=== PATIENT | male | born 1980 | race Caucasian/White ===

== ENCOUNTER 2020-08-26 03:05 | Emergency (ER) | payer OTHER, SELFPAY ==
--- NOTE | 2020-08-26 03:07 | ECG_ITS ---
[facility] Test Date: 2020-08-26 Pat Name: Cristobal Dietrich Department: Room: Gender: Male [employer] Turner: : 1980 Requested By: Ba Elizalde Order Number: [id number] Arzola MD: Sanjay De La Fuente M.D. Measurements Intervals [place] Rate: 69 P: 39 OH: 163 QRS: 10 QRSD: 105 T: 21 QT: 389 QTc: 417 Interpretive Statements SINUS RHYTHM No previous ECG available for comparison Electronically Signed On 08-26-2020 20:24:49 CDT by Sanjay De La Fuente M.D. [id number]
--- NOTE | 2020-08-26 03:07 | XRR_ITS ---
PROCEDURE INFORMATION: Exam: XR Chest, 1 View Exam date and time: 08/26/2020 4:05 AM Age: 39 years old Clinical indication: Dyspnea; Additional info: Cp TECHNIQUE: Imaging protocol: XR of the chest Views: 1 view. COMPARISON: No relevant prior studies available. FINDINGS: Lungs: Unremarkable. No consolidation. Pleural space: Unremarkable. No pleural effusion. No pneumothorax. Heart/Mediastinum: Unremarkable. No cardiomegaly. Bones/joints: Unremarkable. XR/XR chest 1V portable [id number] IMPRESSION: No acute findings.
[2020-08-26 03:12] VITALS: BP 148/94; PULSE 76; RESP 18; TEMP 36.5; O2SAT 100; BMI 36.8
[2020-08-26] MEDS: lidocaine 2% viscous 15 ML, aluminum-mag hydrox-simethicon 30 ML, sucralfate oral liq 1 GM PO (03:55)
[2020-08-26 03:58] LABS: Basophils % 0.5 %; Eosinophils # 0.1 10^3/uL (0.0-0.8); Eosinophils % 1.2 %; Hematocrit 48.7 % (42.0-52.0); Hemoglobin 15.7 g/dL (11.7-16.6); Lymphocytes # 1.2 10^3/uL (0.8-4.8); Lymphocytes % 16.7 %; Mean Corpuscular HGB Conc 32.2 g/dL (30.0-36.0); Mean Corpuscular Hemoglobin 26.8 pg (28.0-34.0); Mean Corpuscular Volume 83.2 fL (80-94); Mean Platelet Volume 11.3 fL (7.4-10.4); Monocytes # 0.5 10^3/uL (0.2-0.9); Monocytes % 6.7 %; Neutrophils # 5.48 10^3/uL (1.8-7.7); Neutrophils % 74.6 %; Nucleated Red Blood Cells % 0 %; Platelet Count 285 10^3/cmm (130-400); Red Blood Count 5.85 10^6/uL (4.1-5.3); Red Cell Distribution Width 13.4 % (12.1-15.1); White Blood Count 7.4 10^3/uL (4.0-10.0)
[2020-08-26 04:05] VITALS: BP 125/83; PULSE 66; RESP 18; O2SAT 96
--- NOTE | 2020-08-26 04:05 | ED_ITS ---
HPI - Chest Pain General: Chief Complaint: Chest Pain Stated Complaint: Epigastric Pain Time Seen by Provider: 08/26/20 03:22 History of Present Illness: HPI narrative: 39-year-old male with no history of heart disease. He presents with chest discomfort starting around 10 PM. He states he was nauseated. Not overly short of breath. He tried Tums which did not help. He tried different positions which did not seem to help either. The pain is significantly improved currently. He still having some mild heaviness in his chest. MD complaint: chest pain Onset (ago): hour(s) Timing of current episode: constant Prior episodes: Yes Onset: during rest Pain location: substernal Pain radiation: none Quality: tightness and aching Relieving factors: nothing Exacerbating factors: nothing Associated symptoms: Reports diaphoresis and nausea; Deny abdominal pain, dyspnea, fever(s), palpitations or vomiting Treatment prior to arrival: other Review of Systems Const: Reports: diaphoresis; Denies: fever(s) Eyes: Denies: change in vision ENMT: Denies: swelling of lips/tongue or sinus pain Card: Reports: chest pain; Denies: palpitations, irregular heart rhythm, edema, swelling of feet/ankles, dyspnea on exertion or orthopnea Resp: Denies: dyspnea GI: Reports: nausea; Denies: abdominal pain or vomiting : Denies: dysuria or hematuria Musc: Reports: back pain; Denies: neck pain Skin/Breast: Denies: rash or erythema Neuro: Denies: headache(s), dizziness or vertigo Psych: Denies: anxiety Physical Exam Const: GENERAL APPEARANCE: well developed ORIENTATION/CONSCIOUSNESS: Yes o riented to person, Yes oriented to place and Yes oriented to time HENMT: COMMON NORMALS: normocephalic, external ears normal and Normal external nose present HEAD & SCALP: normocephalic FACE & SINUS: normal facial exam NOSE: Normal external nose present and No nasal discharge present EXTERNAL EAR: Yes external ears normal Eye: COMMON NORMALS: Equal, round and reactive pupils present, EOMs intact bilaterally and conjunctivae normal EYELID: eyelids normal CONJUNCTIVA: Yes conjunctivae normal PUPIL: Yes Equal, round and reactive pupils present Neck/C-Spine: GENERAL: No tracheal deviation Chest: COMMONS NORMALS: normal inspection of the chest CHEST: No tenderness Resp: COMMON NORMALS: clear to auscultation bilaterally EFFORT & INSPECTION: No tachypneic, No respiratory distress, No retractions, No uses accessory muscles and No tracheal deviation AUSCULTATION: clear to auscultation bilaterally, no rhonchi, no wheezes and lung sounds not diminished Cardio: COMMON NORMALS: regular rate and regular rhythm RATE: regular rate RHYTHM: regular rhythm HEART SOUNDS: no murmurs PERIPHERAL PULSES: radial pulses present GI: INSPECTION: No abdominal distension AUSCULTATION: No Hyperactive bowel sounds present and No Hypoactive bowel sounds present PALPATION: No Guarding due to palpation present (GI) and No Rigid due to palpation PERCUSSION: no dullness to percussion and no tympanic to percussion Neuro: SENSORIUM/ORIENTATION: Yes oriented to person, Yes oriented to place and Yes oriented to time Psych: COMMON NORMALS: mental status grossly normal Skin: COMMON NORMALS: no rashes or lesions noted GENERAL SKIN EXAM: no rashes or lesions noted Course Vital Signs: Vital signs: Vital Signs Temperature 97.7 F 08/26/20 03:12 Pulse Rate 66 08/26/20 05:00 Respiratory Rate 16 08/26/20 05:00 Blood Pressure 125/77 08/26/20 05:00 Pulse Oximetry 97 08/26/20 05:00 MDM - Chest Pain MDM Narrative: Medical decision making narrative: Tightness remains in his chest at this point. He is improved after GI cocktail. His EKG shows a sinus rhythm with a normal axis, and a rate of 70. There are no acute ST changes. His first troponin is normal. His hemoglobin is 15.7. Electrolytes are normal. Chest x-ray shows no acute disease. With improvement in his pain, the patient would like to go home. He was offered to stay for the second troponin, and knows the risks of going home without the second troponin including not detecting a non-STEMI, and potential harm and even . He agrees to this. We suggested that since he gained some improvement with GI cocktail, that he may start an [id number] PPI such as Prevacid or Prilosec. He will return for any return of his chest pain. Lab Data: Labs: Lab Results 08/26/20 08/26/20 08/26/20 Range/Units 03:35 03:35 03:35 WBC 7.4 (4.0-10.0) 10^3/ uL RBC 5.85 H (4.1-5.3) 10^6/u L Hgb 15.7 (11.7-16.6) g/dL Hct 48.7 (42.0-52.0) % MCV 83.2 (80-94) fL MCH 26.8 L (28.0-34.0) pg MCHC 32.2 (30.0-36.0) g/dL RDW 13.4 (12.1-15.1) % Plt Count 285 (130-400) 10^3/c mm MPV 11.3 H (7.4-10.4) fL Neut % (Auto) 74.6 % Lymph % (Auto) 16.7 % [place] % (Auto) 6.7 % Eos % (Auto) 1.2 % Baso % (Auto) 0.5 % Neut # (Auto) 5.48 (1.8-7.7) 10^3/u L Lymph # (Auto) 1.2 (0.8-4.8) 10^3/u L [place] # (Auto) 0.5 (0.2-0.9) 10^3/u L Eos # (Auto) 0.1 (0.0-0.8) 10^3/u L Baso # (Auto) 0.0 (0.0-0.1) 10^3/u L Nucleated RBC % (a uto) 0 % Nucleated RBCs # 0.0 /100WBC Sodium 137 (136-145) mmol/L Potassium 3.7 (3.5-5.1) mmol/L Chloride 103 (98-107) mmol/L Carbon Dioxide 23 (22-29) mmol/L Anion Gap 14.7 (5-19) BUN 17 (6-20) mg/dL Creatinine 0.9 (0.7-1.2) mg/dL GFR Calculation 95.0 (90-130) mL/min Glucose 122 H (65-115) mg/dL Calculated Osmolal ity 287 (285-295) mOsm/k g Calcium 9.7 (8.5-10.5) mg/dL Total Bilirubin 0.3 (0.15-1.2) mg/dL AST 26 (0-40) U/L ALT 57 H (0-41) U/L Alkaline Phosphata se 93 (40-130) IU/L Creatine Kinase 48 (39-308) U/L Troponin T Baselin e 6 (0-15) ng/L NT-Pro-B Natriuret Pep 31 (0-125) pg/mL Total Protein 7.1 (6.6-8.7) g/dL Albumin 4.5 (3.5-5.2) g/dL Globulin 2.6 (1.3-4.6) g/dL Lipase 32 (13-60) U/L Urine Color (Yellow) Urine Appearance (CLEAR) Urine pH (5-7) Ur Specific Gravit y (1.005-1.030) Urine Protein (Negative) Urine Glucose (UA) (Normal) Urine Ketones (Negative) Urine Blood (Negative) Urine Nitrate (Negative) Urine Bilirubin (Negative) Urine Urobilinogen (Negative) mg/dL Ur Leukocyte Isi ase (Negative) 08/26/20 Range/Units 04:15 WBC (4.0-10.0) 10^3/ uL RBC (4.1-5.3) 10^6/u L Hgb (11.7-16.6) g/dL Hct (42.0-52.0) % MCV (80-94) fL MCH (28.0-34.0) pg MCHC (30.0-36.0) g/dL RDW (12.1-15.1) % Plt Count (130-400) 10^3/c mm MPV (7.4-10.4) fL Neut % (Auto) % Lymph % (Auto) % [place] % (Auto) % Eos % (Auto) % Baso % (Auto) % Neut # (Auto) (1.8-7.7) 10^3/u L Lymph # (Auto) (0.8-4.8) 10^3/u L [place] # (Auto) (0.2-0.9) 10^3/u L Eos # (Auto) (0.0-0.8) 10^3/u L Baso # (Auto) (0.0-0.1) 10^3/u L Nucleated RBC % (a uto) % Nucleated RBCs # /100WBC Sodium (136-145) mmol/L Potassium (3.5-5.1) mmol/L Chloride (98-107) mmol/L Carbon Dioxide (22-29) mmol/L Anion Gap (5-19) BUN (6-20) mg/dL Creatinine (0.7-1.2) mg/dL GFR Calculation (90-130) mL/min Glucose (65-115) mg/dL Calculated Osmolal ity (285-295) mOsm/k g Calcium (8.5-10.5) mg/dL Total Bilirubin (0.15-1.2) mg/dL AST (0-40) U/L ALT (0-41) U/L Alkaline Phosphata se (40-130) IU/L Creatine Kinase (39-308) U/L Troponin T Baselin e (0-15) ng/L NT-Pro-B Natriuret Pep (0-125) pg/mL Total Protein (6.6-8.7) g/dL Albumin (3.5-5.2) g/dL Globulin (1.3-4.6) g/dL Lipase (13-60) U/L Urine Color Yellow (Yellow) Urine Appearance Clear (CLEAR) Urine pH 5 (5-7) Ur Specific Gravit y 1.020 (1.005-1.030) Urine Protein Neg (Negative) Urine Glucose (UA) Norm (Normal) Urine Ketones Negative (Negative) Urine Blood Neg (Negative) Urine Nitrate Negative (Negative) Urine Bilirubin Neg (Negative) Urine Urobilinogen Norm (Negative) mg/dL Ur Leukocyte Isi ase Negative (Negative) Discharge Plan Discharge Patient Disposition: Home Clinical Impression: Chest pain Qualifiers: Chest pain type: unspecified Qualified Code(s): R07.9 - Chest pain, unspecified Condition: Stable Prescriptions: New Prevacid 30 mg capsule,delayed release(DR/EC) 30 mg PO DAILY Qty: 30 RF: 0 Discharge Orders: Discharge Order (Routine); Ordered 08/26/20 Ordered By: Ba Jacobson Discharge Diet: Advance as tolerated Discharge Activity: Increase activity as tolerated Patient Instructions: Chest Pain (ED), Esophageal Spasm (ED) Activity Restrictions/Additional Instructions: Return for return of or worsening chest pain, shortness of breath, cough, fever, other concerning symptoms. 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
[2020-08-26 04:16] LABS: Troponin(5th) Baseline 6 ng/L (0-15)
[2020-08-26 04:23] LABS: Add Urine Microscopic? NO
[2020-08-26 04:25] LABS: Bilirubin Urine Neg (Negative); Blood Urine Neg (Negative); Glucose Urine UA Norm (Normal); Ketones Urine Negative (Negative); Leukocyte Esterase Urine Negative (Negative); Nitrate Urine Negative (Negative); Protein Urine Neg (Negative); Urine Appearance Clear (CLEAR); Urine Color Yellow (Yellow); Urobilinogen Urine Norm (Negative); pH Urine 5 (5-7)
[2020-08-26 04:31] LABS: Alanine Aminotransferase 57 U/L (0-41); Albumin Level 4.5 g/dL (3.5-5.2); Alkaline Phosphatase 93 IU/L (40-130); Anion Gap 14.7 (5-19); Aspartate Amino Transferase 26 U/L (0-40); Blood Urea Nitrogen 17 mg/dL (6-20); Calcium 9.7 mg/dL (8.5-10.5); Carbon Dioxide 23 mmol/L (22-29); Chloride 103 mmol/L (98-107); Creatine Phosphokinase 48 U/L (39-308); Creatinine Clr Calc Pharmacy 152.4508; Globulin 2.6 g/dL (1.3-4.6); Glucose 122 mg/dL (65-115); Lipase 32 U/L (13-60); NT Pro B Type Natriuretic Pept 31 pg/mL (0-125); Osmolality Calculated 287 mOsm/kg (285-295); Potassium 3.7 mmol/L (3.5-5.1); Sodium 137 mmol/L (136-145); Total Bilirubin 0.3 mg/dL (0.15-1.2); Total Protein 7.1 g/dL (6.6-8.7)
[2020-08-26 05:00] VITALS: BP 125/77; PULSE 66; RESP 16; O2SAT 97
[2020-08-26 05:48] VITALS: BP 142/78; PULSE 66; RESP 17; O2SAT 97
--- NOTE | 2020-08-26 05:53 | PC.NURSE ---
i agree with this assessment
== END 2020-08-26 05:53 | disposition home or self-care (01) ==
PROVIDERS: Emergency Provider Emergency Medicine
DX: R07.9 Chest pain, unspecified (principal)
CPT/HCPCS: 12345; 71045; 80053; 81003; 82550; 83690; 83880; 84484; 85025; 93005; 96374; 99283; 99284

== ENCOUNTER 2020-09-03 08:37 | Observation (INO) | payer OTHER, SELFPAY ==
[2020-09-03] VITALS (21 sets, daily range): BP systolic 103–165; BP diastolic 62–100; PULSE 68–118; RESP 14–20; TEMP 36.4–37.2; O2SAT 92–98; BMI 37.0
--- NOTE | 2020-09-03 08:56 | US_ITS ---
WS: [id number] RIGHT UPPER QUADRANT ULTRASOUND HISTORY: abd pain COMPARISON: None available. Technically limited evaluation of the RIGHT upper quadrant due to body habitus. Liver: 19.0 cm in length. Moderate enlarged liver with coarsened echotexture and hepatic steatosis. Gallbladder: Well distended gallbladder. There is a stone at the neck of the gallbladder. Mild diffus e gallbladder wall thickening measuring up to 4.8 mm. No pericholecystic fluid. CBD: 0.4 cm Pancreas: Not well visualized. Right kidney: 11.6 cm in length. Normal size and echogenicity. No hydronephrosis or mass. Aorta and IVC: Not visualized. No ascites. US/US gall bladder [id number] IMPRESSION: 1. Cholelithiasis with wall thickening. Findings suspicious for changes of ear ly acute cholecystitis. 2. No common bile duct dilatation. 3. Moderate hepatic steatosis and hepatomegaly.
--- NOTE | 2020-09-03 09:24 | ED_ITS ---
HPI - Abdominal Pain General: Chief Complaint: Abdominal Pain Stated Complaint: Lower Abdominal Pain Time Seen by Provider: 09/03/20 08:45 History of Present Illness: HPI narrative: 39-year-old male comes in complaining of right upper quadrant abdominal pain. He was seen here on 08/26/2020 with a complaint of chest pain he got a work-up including a delta troponin on and that was unremarkable. His LFTs at that time showed only a slight bump in one of his transaminases and there is no report of abdominal pain. Several days later he went to [facility] he had more right upper quadrant abdominal pain had an ultrasound was told he had cholecystitis and cho lelithiasis he was started on some oral antibiotics pain medications and sent home. Today he is complaining of worsening pain he was supposed to see Dr. Marie was unable to get an appointment in the office and was directed here. He has been very nauseous but no vomiting he denies any hematochezia melena hematemesis or coffee-ground emesis. MD elicited complaint: abdominal pain Onset (ago): day(s) Pain Consistency: intermittent Location: RUQ Severity: severe Quality: cramping and stabbing Radiation: R flank and back Migration to: RUQ Exacerbating factors: eating Relieving factors: rest Associated Symptoms: Reports anorexia and bloating; Denies belching, change in bowel habits, change in stool character, chills, coffee ground emesis, constipation, GI cramping, diarrhea, dyspepsia, dysuria, excessive flatus, fever(s), heartburn, hematochezia, hematuria, hematemesis, fecal incontinence, loose stools, melena, nausea, poor appetite, syncope and vomiting Review of Systems Const: Denies: fever(s) or chills ENMT: Denies: throat pain, ear or mastoid pain, nasal discharge or nasal co ngestion Card: Denies: syncope Resp: Denies: dyspnea, productive cough or non-productive cough GI: Reports: bloating; Denies: nausea, vomiting, hematemesis, coffee ground emesis, heartburn, diarrhea, constipation, GI cramping, belching, excessive flatus, fecal incontinence, change in bowel habits, change in stool character, hematochezia or melena : Denies: dysuria or hematuria Skin/Breast: Denies: rash or pruritus PFSH ED PFSH: Medical History (Updated 09/03/20 @ 11:53 by Navi Mendez DO) No significant past medical history Surgical History (Updated 09/03/20 @ 11:46 by Randell Kaplan MD) No significant past surgical history Social History Smoking and tobacco status: never smoked Physical Exam Const: COMMON NORMALS: no acute distress GENERAL APPEARANCE: cooperative and comfortable ORIENTATION/CONSCIOUSNESS: Yes awake, Yes oriented to person, Yes oriented to place and Yes oriented to time HENMT: COMMON NORMALS: normocephalic, atraumatic and hearing grossly normal bilaterally HEAD & SCALP: normocephalic and atraumatic Eye: COMMON NORMALS: Equal, round and reactive pupils present, EOMs intact bilaterally, conjunctivae normal and no scleral icterus CONJUNCTIVA: Yes conjunctivae normal PUPIL: Yes Equal, round and reactive pupils present Neck/C-Spine: COMMON NORMALS: full ROM, no lymphadenopathy, supple and no JVD Lymph: LYMPHATIC: no lymphadenopathy noted and no lymphedema noted Resp: COMMON NORMALS: normal respiratory effort, No retractions, No use of accessory muscles and clear to auscultation bilaterally AUSCULTATION: clear to auscultation bilaterally Cardio: COMMON NORMALS: no JVD, regular rate, regular rhythm and No murmurs present (Cardio) RATE: regular rate RHYTHM: regular rhythm GI: PALPATION: Yes Tenderness to palpation present (GI) Details: RUQ (Positive Silva sign) and No Guarding due to palpation present (GI) Extremity: COMMON NORMALS: normal to inspection, capillary refill normal, no clubbing, cyanosis or edema, no calf tenderness and no pedal edema Neuro: SENSORIUM/ORIENTATION: Yes oriented to person, Yes oriented to place and Yes oriented to time Skin: COMMON NORMALS: no rashes or lesions noted GENERAL SKIN EXAM: no rashes or lesions noted Course 2 Vital Signs: Vital signs: Vital Signs Temperature 97.7 F 09/03/20 08:38 Pulse Rate 118 H 09/03/20 08:38 Respiratory Rate 18 09/03/20 08:38 Blood Pressure 165/100 09/03/20 08:38 Pulse Oximetry 96 09/03/20 08:38 MDM - Abdominal Pain MDM Narrative: Medical decision making narrative: for evaluation.Discussed with Dr. Kaplan he is seeing the patient in the emergency room and will take him to surgery and admit. Lab Data: Labs: Lab Results 09/03/20 09/03/20 09/03/20 Range/Units 09:45 10:10 10:10 WBC 14.4 H (4.0-10.0) 10^3/ uL RBC 5.74 H (4.1-5.3) 10^6/u L Hgb 15.2 (11.7-16.6) g/dL Hct 47.7 (42.0-52.0) % MCV 83.1 (80-94) fL MCH 26.5 L (28.0-34.0) pg MCHC 31.9 (30.0-36.0) g/dL RDW 13.6 (12.1-15.1) % Plt Count 291 (130-400) 10^3/c mm MPV 10.6 H (7.4-10.4) fL Neut % (Auto) 80.9 % Lymph % (Auto) 7.6 % [place] % (Auto) 10.3 % Eos % (Auto) 0.6 % Baso % (Auto) 0.3 % Neut # (Auto) 11.69 H (1.8-7.7) 10^3/u L Lymph # (Auto) 1.1 (0.8-4.8) 10^3/u L [place] # (Auto) 1.5 H (0.2-0.9) 10^3/u L Eos # (Auto) 0.1 (0.0-0.8) 10^3/u L Baso # (Auto) 0.0 (0.0-0.1) 10^3/u L Nucleated RBC % (a uto) 0 % Nucleated RBCs # 0.0 /100WBC Sodium 137 (136-145) mmol/L Potassium 4.1 (3.5-5.1) mmol/L Chloride 101 (98-107) mmol/L Carbon Dioxide 24 (22-29) mmol/L Anion Gap 16.1 (5-19) BUN 5 L (6-20) mg/dL Creatinine 0.8 (0.7-1.2) mg/dL GFR Calculation 108.8 (90-130) mL/min Glucose 156 H (65-115) mg/dL Calculated Osmolal ity 284 L (285-295) mOsm/k g Calcium 9.4 (8.5-10.5) mg/dL Total Bilirubin 3.6 H (0.15-1.2) mg/dL AST 68 H (0-40) U/L ALT 126 H (0-41) U/L Alkaline Phosphata se 128 (40-130) IU/L Total Protein 7.4 (6.6-8.7) g/dL Albumin 4.1 (3.5-5.2) g/dL Globulin 3.3 (1.3-4.6) g/dL Lipase 6 L (13-60) U/L Urine Color Dark yellow (Yellow) Urine Appearance Clear (CLEAR) Urine pH 6.5 (5-7) Ur Specific Gravit y 1.005 (1.005-1.030) Urine Protein Neg (Negative) Urine Glucose (UA) Norm (Normal) Urine Ketones Negative (Negative) Urine Blood Neg (Negative) Urine Nitrate Negative (Negative) Urine Bilirubin 1+ H (Negative) Urine Urobilinogen Norm (Negative) mg/dL Ur Leukocyte Isi ase Negative (Negative) Discharge Plan Discharge Patient Disposition: Admitted As Inpatient Clinical Impression: Acute cholecystitis, Cholelithiasis Condition: Stable Prescriptions: No Action lansoprazole [Prevacid] 30 mg capsule,delayed release(DR/EC) 30 mg PO DAILY Qty: 30 RF: 0 hydrocodone-acetaminophen 5-325 mg tablet 1 tab PO 5XD PRN (Reason: Pain) RF: 0 ondansetron 4 mg tablet,disintegrating 4 mg PO Q6H PRN (Reason: Nausea) RF: 0 amoxicillin-pot clavulanate 875-125 mg tablet 1 tab PO BID RF: 0 Coding Level of Care Code 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
[2020-09-03 10:15] LABS: Basophils % 0.3 %; Eosinophils # 0.1 10^3/uL (0.0-0.8); Eosinophils % 0.6 %; Hematocrit 47.7 % (42.0-52.0); Hemoglobin 15.2 g/dL (11.7-16.6); Lymphocytes # 1.1 10^3/uL (0.8-4.8); Lymphocytes % 7.6 %; Mean Corpuscular HGB Conc 31.9 g/dL (30.0-36.0); Mean Corpuscular Hemoglobin 26.5 pg (28.0-34.0); Mean Corpuscular Volume 83.1 fL (80-94); Mean Platelet Volume 10.6 fL (7.4-10.4); Monocytes # 1.5 10^3/uL (0.2-0.9); Monocytes % 10.3 %; Neutrophils # 11.69 10^3/uL (1.8-7.7); Neutrophils % 80.9 %; Nucleated Red Blood Cells % 0 %; Platelet Count 291 10^3/cmm (130-400); Red Blood Count 5.74 10^6/uL (4.1-5.3); Red Cell Distribution Width 13.6 % (12.1-15.1); White Blood Count 14.4 10^3/uL (4.0-10.0)
[2020-09-03 10:31] LABS: Add Urine Microscopic? NO
[2020-09-03 10:43] LABS: Alanine Aminotransferase 126 U/L (0-41); Albumin Level 4.1 g/dL (3.5-5.2); Alkaline Phosphatase 128 IU/L (40-130); Anion Gap 16.1 (5-19); Aspartate Amino Transferase 68 U/L (0-40); Blood Urea Nitrogen 5 mg/dL (6-20); Calcium 9.4 mg/dL (8.5-10.5); Carbon Dioxide 24 mmol/L (22-29); Chloride 101 mmol/L (98-107); Globulin 3.3 g/dL (1.3-4.6); Glomerular Filtration Rate 108.8 mL/min (90-130); Glucose 156 mg/dL (65-115); Lipase 6 U/L (13-60); Osmolality Calculated 284 mOsm/kg (285-295); Potassium 4.1 mmol/L (3.5-5.1); Sodium 137 mmol/L (136-145); Total Bilirubin 3.6 mg/dL (0.15-1.2); Total Protein 7.4 g/dL (6.6-8.7)
[2020-09-03 10:56] LABS: Bilirubin Urine 1+ (Negative); Blood Urine Neg (Negative); Glucose Urine UA Norm (Normal); Ketones Urine Negative (Negative); Leukocyte Esterase Urine Negative (Negative); Nitrate Urine Negative (Negative); Protein Urine Neg (Negative); Specific Gravity, Urine 1.005 (1.005-1.030); Urine Appearance Clear (CLEAR); Urine Color Dark Yellow (Yellow); Urobilinogen Urine Norm (Negative); pH Urine 6.5 (5-7)
[2020-09-03] MEDS: piperacillin-tazobactam 3.375 GM in sodium chloride 0.9% (plus) 50 ML IV ×2 (11:14→16:51)
--- NOTE | 2020-09-03 11:45 | PM.HP ---
Providers/Chief Complaint Admitting Physician: General Surgery Randell Kaplan MD Chief Complaint: Lower Abdominal Pain History of Present Illness Cristobal Dietrich is a 39 year old male who says he started feeling poorly a couple of weeks ago. He came into the emergency department after a week of indigestion and I believe it was thought that he may be experiencing a gallbladder problem, but was sent home. He was in [place] last Thursday and after eating pulled pork he had another severe episode of right upper quadrant abdominal pain. This was unassociated with nausea, vomiting, fevers or chills, changes in bowel habits (although the patient says that he has been slow to have bowel movements over the past week), jaundice, acholic stools, etc. He was seen in an urgent care setting and was sent to the local emergency room where he was diagnosed with acute cholecystitis. The surgeon there wanted to put him on antibiotics and cool his gallbladder down before doing surgery. The patient asked about the option of getting on antibiotics orally and coming back to [place] for surgery and that plan was agreed upon. He was discharged on oral narcotic pain medication, antiemetics, and antibiotics. The patient mentions that he may have had 2 or 3 episodes of this over the past several years but nothing on a regular basis until the past couple of weeks. Review of Systems General: Reports: 10 or more systems reviewed and unremarkable except in HPI and below Const: Denies: fever(s) Resp: Denies: dyspnea or productive cough GI: Reports: abdominal pain and change in bowel habits (Slow/constipated); Denies: nausea Medications/Allergies Home Medications Medication Instructions Recorded Confirmed Last Taken Type lansoprazole [Prevacid] 30 mg PO DAILY #30 cap 08/26/20 09/03/20 09/03/20 Rx amoxicillin-pot clavulanate 1 tab PO BID 09/03/20 09/03/20 09/03/20 History hydrocodone-acetaminophen 1 tab PO 5XD PRN 09/03/20 09/03/20 09/03/20 History ondansetron 4 mg PO Q6H PRN 09/03/20 09/03/20 Unknown History Allergies Allergy/AdvReac Type Severity Reaction Status Date / Time azithromycin Allergy Chest pain Verified 09/03/20 11:53 PFSH Acute PFSH: Medical History No significant past medical history Surgical History (Updated 09/03/20 @ 11:46 by Randell Kaplan MD) No significant past surgical history Social History (Updated 09/03/20 @ 11:52 by Randell Kaplan MD) Smoking and tobacco status: never smoked Vitals/I&O/Wt Last Vital Signs Temp 97.7 F 09/03/20 08:38 Pulse 118 H 09/03/20 08:38 Resp 18 09/03/20 08:38 BP 165/100 09/03/20 08:38 Pulse Ox 96 09/03/20 08:38 Weight last 48 hrs Weight 273 lb Physical Exam Narrative: EXAM NARRATIVE: The patient was encountered in the emergency department. He does not appear to be in any acute distress. The pupils are equal. No carotid bruits are heard. The lungs are clear anteriorly. The heart is regular. The abdomen is moderately obese with hypoactive bowel sounds. The patient has some guarding in the right upper quadrant with a positive Silva's sign. No obvious masses are palpated. The extremities reveal no edema. Neurologically the patient appears to be grossly intact. Data : 09/03/20 10:10 09/03/20 10:10 Other Labs: Laboratory Tests 09/03/20 10:10 Total Bilirubin 3.6 H AST 68 H ALT 126 H Alkaline Phosphatase 128 Lipase 6 L US: Radiologist's impression: Gallbladder ultrasound 09/03/2020 IMPRESSION: 1. Cholelithiasis with wall thickening. Findings suspicious for changes of early acute cholecystitis. 2. No common bile duct dilatation. 3. Moderate hepatic steatosis and hepatomegaly. A&P Assessment and plan (1) Acute cholecystitis due to biliary calculus: It sounds like the patient has been developing acute calculus cholecystitis over the last couple of weeks, but became severely symptomatic several days ago. His gallbladder ultrasound shows the gallbladder wall thickening up to almost 5 mm in one area. I made him aware that the only concern that I have on his labs is his bilirubin being 3.6. His ultrasound does not show any dilatation of the bile duct, however, making me suspicious of Mirizzi's syndrome; I think it is reasonable to proceed with a cholecystectomy without performing an MRCP. Surgery was discussed with him in detail. I made him aware that we no longer generally recommend cooling off the gallbladder prior to doing surgery for acute cholecystitis. I have recommended we proceed with a laparoscopic or possibly open cholecystectomy today. Surgical risks of bleeding, infection, chances of an open procedure, internal organ injury, etc. were all discussed. The patient seems to understand and is agreeable to proceeding. The patient says he last had a banana to eat around 3:30 AM this morning. I will make arrangements for a laparoscopic or possibly open cholecystectomy with possible intraoperative cholangiography today. Status: Acute Attestations Medical Necessity Statement*: Based on my medical assessment, presenting symptoms and consideration of the scope of surgical therapy, I expect this patient will require treatment in the hospital for a period of time spanning less than 2 midnights, and is therefore being placed in observation status. 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
--- NOTE | 2020-09-03 12:28 | P.ANESASSM_ITS ---
Pre-Anesthetic Assessment Pre-Anesthetic Assessment: Height/Weight: Height 1.83 m Weight 123.831 kg Temp Pulse Resp BP Pulse Ox 98.3 F 94 18 118/70 96 09/03/20 12:15 09/03/20 12:15 09/03/20 12:15 09/03/20 12:15 09/03/20 12:15 Preop Diagnosis: Cholecystitis Proposed Procedure: Operation Date: 09/03/20 12:20 Proposed Procedures p Laparoscopic Cholecystectomy(Not Applicable) - Randell Kaplan MD Familial anesthetic complications: No hx of anesthesia Was Beta Yaima taken within 24 hours: N/A Last intake: Intake Last Liquid Date 09/03/20 Last Liquid Time 08:00 Last Solid Date 09/03/20 Last Solid Time 03:30 Social: Social History: No alcohol and No tobacco Exam: Pre-Anes Outpt Exam: alert, oriented x 3, clear to auscultation bilaterally and regular rate & rhythm Airway: Cervical ROM: WNL MP: 2 Dentition: Chipped GI: GI: GERD Anesthetic Plan: ASA status: 2 Anesthesia: General Risk of > 500 ml blood loss (7ml/kg in children): No PFSH Anesthesia PFSH: Medical History No significant past medical history Surgical History (Updated 09/03/20 @ 11:46 by Randell Kaplan MD) No significant past surgical history Social History (Updated 09/03/20 @ 11:52 by Randell Kaplan MD) Smoking and tobacco status: never smoked Data Anesthesia CBC & Chem 7: 09/03/20 10:10 09/03/20 10:10 Other Labs: Laboratory Results - last 48 hr 09/03/20 09/03/20 09/03/20 09:45 10:10 10:10 WBC 14.4 H RBC 5.74 H Hgb 15.2 Hct 47.7 MCV 83.1 MCH 26.5 L MCHC 31.9 RDW 13.6 Plt Count 291 MPV 10.6 H Neut % (Auto) 80.9 Lymph % (Auto) 7.6 [place] % (Auto) 10.3 Eos % (Auto) 0.6 Baso % (Auto) 0.3 Neut # (Auto) 11.69 H Lymph # (Auto) 1.1 [place] # (Auto) 1.5 H Eos # (Auto) 0.1 Baso # (Auto) 0.0 Nucleated RBC % (auto) 0 Nucleated RBCs # 0.0 Sodium 137 Potassium 4.1 Chloride 101 Carbon Dioxide 24 Anion Gap 16.1 BUN 5 L Creatinine 0.8 GFR Calculation 108.8 Glucose 156 H Calculated Osmolality 284 L Calcium 9.4 Total Bilirubin 3.6 H AST 68 H ALT 126 H Alkaline Phosphatase 128 Total Protein 7.4 Albumin 4.1 Globulin 3.3 Lipase 6 L Urine Color Dark yellow Urine Appearance Clear Urine pH 6.5 Ur Specific [place] 1.005 Urine Protein Neg Urine Glucose (UA) Norm Urine Ketones Negative Urine Blood Neg Urine Nitrate Negative Urine Bilirubin 1+ H Urine Urobilinogen Norm Ur Leukocyte Esterase Negative Cardiac Studies: No Data to Display
[2020-09-03] MEDS: sodium chloride 0.9% 1,000 ML 30 ML IV (12:44)
[2020-09-03] MEDS: metroNIDAZOLE IV 500 MG/100 ML PREMIX 100 MG IV (12:56)
--- NOTE | 2020-09-03 13:50 | P.OP_ITS ---
Operative Report Date of procedure: September 03, 2020 Pre-op Diagnosis: Acute calculus cholecystitis. Post-op diagnosis: same Procedure Done: Appendectomy cholecystectomy. Specimens removed/disposition: Gallbladder. Surgeon: Randell Kaplan Anesthesia: General Estimated blood loss (mL): 30 Complications: None. Condition: stable Disposition: PACU Procedure: The patient was brought to the Operating Room and was placed in a supine position on the Operating Room table. General endotracheal anesthesia was induced. The abdomen was prepped and draped in a sterile fashion. A small vertical incision was carried out in the inferior aspect of the umbilicus. Blunt dissection was carried out down to the fascia, which was grasped with a Pablo clamp. A stay suture of 0 Vicryl was placed on either side of the midline and the midline fascia was incised. The underlying peritoneum was opened bluntly and the Marilyn port was placed directly into the peritoneal cavity and was held in place with the inflatable balloon. The peritoneal cavity was insufflated with carbon dioxide. The laparoscope was used to inspect the abdominal cavity. No gross abnormalities were initially noted, but omentum covered the vast majority of the liver. A 5 millimeter port was placed in the epigastrium under direct vision. Two 5-millimeter ports were placed on the right side of the abdomen under direct vision. The omentum was then brought inferiorly, revealing a distended and edematous gallbladder, consistent with acute cholecystitis. The gallbladder was clearly too distended to be held onto with graspers, so approximately 50 mL of very dark-colored bile were evacuated from the gallbladder using a laparoscopic needle. Some of the bile was sent for Gram stain and culture. The gallbladder was then able to be grasped and elevated. The subacute adhesions to the gallbladder were all brushed off bluntly. Blunt dissection and hydrodissection were then carried out in the infundibular region of the gallbladder and the cystic duct and cystic artery were eventually identified. The surrounding tissue was edematous and friable. The gallbladder was partially removed from the liver bed using cautery and the spatula to confirm the anatomy before the structures were clipped and divided. The gallbladder was then removed from the liver bed using cautery and the spatula. The tissue in the gallbladder bed was very friable, and some mild generalized oozing occurred throughout the procedure. After the gallbladder had been removed from the liver bed, the laparoscope was moved to the epigastric port and the gallbladder was removed from the peritoneal cavity through the umbilical port site after being placed in a laparoscopic bag. The fascial incision had to be elongated inferiorly slig htly at the umbilicus to allow passage of the bag and contents. The stay sutures of Vicryl were tied to each other at the umbilicus. Some additional [id number] sutures of 0 Vicryl were then placed, closing the defect so that it was airtight. The perihepatic spaces were irrigated with saline and the liver bed was reinspected. No ongoing problems were seen. The remaining ports were removed from the abdominal wall and the pneumoperitoneum was evacuated. All skin incisions were closed using inverted interrupted sutures of 4-0 Vicryl. Benzoin and Steri-Strips were placed over the incisions and Band-Aids followed. The patient was taken to the Recovery Area in stable condition postoperatively.
[2020-09-03] MEDS: bisacodyl 5 mg Tablet 10 MG PO (15:04)
[2020-09-03] MEDS: heparin 5,000 unit/mL INJ 1 mL 5000 UNIT SUBCUT (15:05)
[2020-09-03] MEDS: famotidine 20 mg/2 mL INJ IVP (15:05)
[2020-09-03] MEDS: D5-NS 0.45% + KCL 20 mEq 20 MEQ/1,000 ML BAG 100 MEQ IV (15:05)
[2020-09-03] MEDS: levalbuterol 0.63 mg/3 mL Neb INHALATION ×2 (16:32→19:45)
[2020-09-03] MEDS: HYDROcodone-acetaminophen 5-325 mg Tablet PO (16:52)
[2020-09-04 00:20] VITALS: BP 120/72; PULSE 72; RESP 18; TEMP 36.9; O2SAT 95
[2020-09-04] MEDS: piperacillin-tazobactam 3.375 GM in sodium chloride 0.9% (plus) 50 ML IV (00:29)
[2020-09-04] MEDS: D5-NS 0.45% + KCL 20 mEq 20 MEQ/1,000 ML BAG 100 MEQ IV (00:30)
[2020-09-04] MEDS: famotidine 20 mg/2 mL INJ IVP (02:15)
[2020-09-04] MEDS: heparin 5,000 unit/mL INJ 1 mL 5000 UNIT SUBCUT (02:16)
[2020-09-04 03:54] LABS: Basophils % 0.1 %; Hematocrit 41.9 % (42.0-52.0); Hemoglobin 13.3 g/dL (11.7-16.6); Lymphocytes # 0.7 10^3/uL (0.8-4.8); Lymphocytes % 4.6 %; Mean Corpuscular HGB Conc 31.7 g/dL (30.0-36.0); Mean Corpuscular Hemoglobin 26.9 pg (28.0-34.0); Mean Corpuscular Volume 84.6 fL (80-94); Mean Platelet Volume 11.4 fL (7.4-10.4); Monocytes # 0.7 10^3/uL (0.2-0.9); Monocytes % 5.1 %; Neutrophils # 12.73 10^3/uL (1.8-7.7); Neutrophils % 89.7 %; Nucleated Red Blood Cells % 0 %; Platelet Count 271 10^3/cmm (130-400); Red Blood Count 4.95 10^6/uL (4.1-5.3); Red Cell Distribution Width 13.8 % (12.1-15.1); White Blood Count 14.2 10^3/uL (4.0-10.0)
[2020-09-04 04:18] LABS: Alanine Aminotransferase 114 U/L (0-41); Albumin Level 3.7 g/dL (3.5-5.2); Alkaline Phosphatase 137 IU/L (40-130); Aspartate Amino Transferase 52 U/L (0-40); Globulin 2.5 g/dL (1.3-4.6); Total Bilirubin 1.3 mg/dL (0.15-1.2); Total Protein 6.2 g/dL (6.6-8.7)
[2020-09-04 04:21] LABS: Anion Gap 13.9 (5-19); Blood Urea Nitrogen 7 mg/dL (6-20); Calcium 8.9 mg/dL (8.5-10.5); Carbon Dioxide 23 mmol/L (22-29); Chloride 104 mmol/L (98-107); Glomerular Filtration Rate 108.8 mL/min (90-130); Glucose 154 mg/dL (65-115); Osmolality Calculated 285 mOsm/kg (285-295); Potassium 3.9 mmol/L (3.5-5.1); Sodium 137 mmol/L (136-145)
[2020-09-04 04:39] VITALS: BP 109/69; PULSE 74; RESP 18; TEMP 36.8; O2SAT 96
--- NOTE | 2020-09-04 07:43 | P.DS_ITS ---
Discharge Providers Date of Admission: 09/03/20 12:00 Date of Discharge: September 04, 2020 Attending Provider at Admission: Anuja Ware DO Attending Provider at Discharge: Randell Kaplan MD Diagnoses at Discharge Discharge Diagnosis (1) Acute cholecystitis due to biliary calculus: Status: Acute Reason for Visit Reason for Visit: Lower Abdominal Pain Hospital Course Discharge Summary: This is a 39-year-old white male who started having symptoms of biliary colic/acute cholecystitis 2 weeks prior to presentation. When he presented to the hospital on 09/03/2020 an ultrasound and laboratory studies showed changes consistent with acute cholecystitis. He underwent a laparoscopic cholecystectomy the same day. By the following morning he was already feeling better, was passing flatus, was taking fluids orally, and his liver function studies had improved considerably. He was anxious to go home. The patient was instructed with respect to activity limitations, diet, wound care, etc. A follow-up appointment will be made for him to see me in the office as an outpatient. Physical Exam Narrative: EXAM NARRATIVE: Bowel sounds are present. All wounds look good. The Band-Aids were removed and left off. Discharge Data Data Completed and Pending: Completed Studies During Hospitalization Category Date Time Status US gall bladder 7 6705 Stat Ultrasound 09/03/20 08:56 Completed Pending at discharge Category Date Time Status Body Fluid Cultur e & GS Routine Lab 09/03/20 13:20 Received Pathology: Surgic al [PTH] Routine Pth 09/03/20 13:39 Ordered Labs from last 24 hours 09/04/20 09/04/20 09/04/20 03:27 03:27 03:27 WBC 14.2 H RBC 4.95 Hgb 13.3 Hct 41.9 L MCV 84.6 MCH 26.9 L MCHC 31.7 RDW 13.8 Plt Count 271 MPV 11.4 H Neut % (Auto) 89.7 Lymph % (Auto) 4.6 [place] % (Auto) 5.1 Eos % (Auto) 0.0 Baso % (Auto) 0.1 Neut # (Auto) 12.73 H Lymph # (Auto) 0.7 L [place] # (Auto) 0.7 Eos # (Auto) 0.0 Baso # (Auto) 0.0 Nucleated RBC % (a uto) 0 Nucleated RBCs # 0.0 Sodium 137 Potassium 3.9 Chloride 104 Carbon Dioxide 23 Anion Gap 13.9 BUN 7 Creatinine 0.8 GFR Calculation 108.8 Glucose 154 H Calculated Osmolal ity 285 Calcium 8.9 Total Bilirubin 1.3 H Direct Bilirubin 0.70 H AST 52 H ALT 114 H Alkaline Phosphata se 137 H Total Protein 6.2 L Albumin 3.7 Globulin 2.5 Lipase Urine Color Urine Appearance Urine pH Ur Specific Gravit y Urine Protein Urine Glucose (UA) Urine Ketones Urine Blood Urine Nitrate Urine Bilirubin Urine Urobilinogen Ur Leukocyte Isi ase 09/03/20 09/03/20 09/03/20 10:10 10:10 09:45 WBC 14.4 H RBC 5.74 H Hgb 15.2 Hct 47.7 MCV 83.1 MCH 26.5 L MCHC 31.9 RDW 13.6 Plt Count 291 MPV 10.6 H Neut % (Auto) 80.9 Lymph % (Auto) 7.6 [place] % (Auto) 10.3 Eos % (Auto) 0.6 Baso % (Auto) 0.3 Neut # (Auto) 11.69 H Lymph # (Auto) 1.1 [place] # (Auto) 1.5 H Eos # (Auto) 0.1 Baso # (Auto) 0.0 Nucleated RBC % (a uto) 0 Nucleated RBCs # 0.0 Sodium 137 Potassium 4.1 Chloride 101 Carbon Dioxide 24 Anion Gap 16.1 BUN 5 L Creatinine 0.8 GFR Calculation 108.8 Glucose 156 H Calculated Osmolal ity 284 L Calcium 9.4 Total Bilirubin 3.6 H Direct Bilirubin AST 68 H ALT 126 H Alkaline Phosphata se 128 Total Protein 7.4 Albumin 4.1 Globulin 3.3 Lipase 6 L Urine Color Dark yellow Urine Appearance Clear Urine pH 6.5 Ur Specific Gravit y 1.005 Urine Protein Neg Urine Glucose (UA) Norm Urine Ketones Negative Urine Blood Neg Urine Nitrate Negative Urine Bilirubin 1+ H Urine Urobilinogen Norm Ur Leukocyte Sii ase Negative Vitals: Last Vital Signs Temp 98.2 F 09/04/20 04:39 Pulse 74 09/04/20 04:39 Resp 18 09/04/20 04:39 BP 109/69 09/04/20 04:39 Pulse Ox 96 09/04/20 04:39 Discharge Plan Discharge Patient Disposition: Home Condition: Stable Prescriptions: New hydrocodone-acetaminophen 5-325 mg tablet 1 - 2 tab PO Q5H PRN (Reason: pain) Qty: 30 RF: 0 Continued ondansetron 4 mg tablet,disintegrating 4 mg PO Q6H PRN (Reason: Nausea) RF: 0 amoxicillin-pot clavulanate 875-125 mg tablet 1 tab PO BID RF: 0 ibuprofen 200 mg PO PRN RF: 0 Discontinued lansoprazole [Prevacid] 30 mg capsule,delayed release(DR/EC) 30 mg PO DAILY Qty: 30 RF: 0 hydrocodone-acetaminophen 5-325 mg tablet 1 tab PO 5XD PRN (Reason: Pain) RF: 0 Discharge Orders: Discharge Order (Routine); Ordered 09/04/20 Ordered By: Randell Kaplan Referrals: Randell Kaplan MD [Physician] - 2 weeks (Nursing: Please call Dr. Kaplan's office ([phone]) and make an appointment for the patient to be seen in 10-14 days.) Discharge Diet: Advance as tolerated Discharge Activity: Limit activity as instructed Activity Restrictions/Additional Instructions: 1. Discharge to home today. 2. Appointment to see Dr. Kaplan in 10-14 days. 3. Leave Steri-Strip(s) on at home as discussed, may shower. 4. [place] 5/325 1-2 tablets by mouth every 5 hours as needed for pain. #30, no refills. No lifting over 20 pounds, no repetitive bending or twisting, no strenuous p ushing / pulling or other heavy activity. Ambulate regularly. May go up and down steps if needed. Discharge Attestations Time Spent in Discharge Care*: less than 30 min Quality Metrics Clinical Quality Measures During this hospital stay, did patient experience: None Coding Level of Care Code Acute Web Development Director for g Fwd Diagnoses Acute cholecystitis due to biliary calculus K80.00
[2020-09-04 07:46] VITALS: BP 109/69; PULSE 74; RESP 18; TEMP 36.8; O2SAT 96
[2020-09-04 07:48] VITALS: BP 113/69; PULSE 77; RESP 16; TEMP 36.9; O2SAT 93
[2020-09-04 08:07] VITALS: PULSE 77; RESP 16; O2SAT 94
--- NOTE | 2020-09-04 08:09 | ANE.PACU2 ---
Inpatient post-anesthesia follow up: Airway intact: Yes Vital signs: Temperature 98.4 F Pulse Rate [Monito r] 118 Pulse Rate 77 Respiratory Rate 16 Blood Pressure [Ri ght Arm] 165/100 Blood Pressure 113/69 Pulse Oximetry 94 Oxygen Delivery Me thod Room Air Oxygen Flow Rate 8 Fraction of Inspir ed Oxygen Hydration adequate: Yes Nausea and vomiting: No Pain level: 1 Mental status: Baseline
== END 2020-09-04 08:45 | disposition home or self-care (01) ==
LOC: ER 12:04 → MEDSURG 13:41
PROVIDERS: Family Medicine; Admitting Provider Family Medicine; Visit Provider Surgery
PROC: 0FT44ZZ Resection of Gallbladder, Percutaneous Endoscopic Approach (ICD-10-PCS; CPT 47562; principal; 2020-09-03 12:20)
DX: K80.10 Calculus of gallbladder with chronic cholecystitis without obstruction (principal)
CPT/HCPCS: 47562; 12345; 36415; 76705; 80048; 80053; 80076; 81003; 83690; 85025; 87070; 87075; 87205; 88304; 94640; 96361; 96365; 96366; 96367; 96372; 96375; 99282; 99285; G0378; J0690; J1100; J1170; J1644; J1885; J2250; J2405; J2543; J2704; J2710; J3010; J3490; J7030; J7614; S0030